=== PATIENT | male | born 1940 | race Caucasian/White ===

== ENCOUNTER 2019-06-28 16:58 | Inpatient (IN) | payer OTHER ==
[2019-06-28] VITALS (7 sets, daily range): BP systolic 138–166; BP diastolic 68–95
[~2019-06-28] VITALS: Ht 180.3 cm; Wt 84.4 kg
[2019-06-28 17:21] LABS: ABSOLUTE BASOPHILS 0.1 thou/uL (0.0-0.2); ABSOLUTE EOSINOPHILS 0.2 thou/uL (0.0-0.7); ABSOLUTE LYMPHOCYTES 2.2 thou/uL (0.8-5.3); ABSOLUTE MONOCYTES 0.8 thou/uL (0.0-1.2); ABSOLUTE NEUTROPHILS 3.9 thou/uL (1.6-8.1); BASOPHILS 1.3 %; EOSINOPHILS 2.8 %; HEMATOCRIT 45.2 % (42.0-52.0); HEMOGLOBIN 15.7 gm/dL (14.0-18.0); LYMPHOCYTES 30.8 %; MCH 31.9 pg (26.0-34.0); MCHC 34.7 g/dL (28.0-37.0); MCV 92.1 fL (80.0-100.0); MONOCYTES 11.4 %; MPV 8.7 fl. (7.2-11.1); NUCLEATED RBCS 0 /100WBC; PLATELET COUNT* 175 thou/uL (150-400); POLYS 53.7 %; RBC 4.91 mil/uL (4.50-6.00); RDW-CV 13.1 % (10.5-14.5); WBC 7.3 thou/uL (4.0-11.0)
[2019-06-28] MEDS ORDERED: VITAMIN D32000 UNI2 PO (17:22)
[2019-06-28] MEDS ORDERED: FLONASE 0.05%50 MCG NARES (17:23)
[2019-06-28] MEDS ORDERED: METRONIDAZOLE500 M4 PO (17:23)
[2019-06-28] MEDS ORDERED: TYLENOL PM EX-1 EACH PO (17:23)
[2019-06-28] MEDS ORDERED: ASA81BEC PO (17:24)
[2019-06-28 17:33] LABS: APTT 25.8 Seconds (25.0-31.3); CALCIUM 8.6 mg/dL (8.5-10.1); CREATININE 1.6 mg/dL (0.6-1.3); INR 1.1; PROTIME 11.5 Seconds (9.20-11.50)
[2019-06-28 17:34] LABS: POTASSIUM 2.9 mmol/L (3.5-5.1)
[2019-06-28 17:45] LABS: ALBUMIN 3.8 g/dL (3.4-5.0); CK-MB MASS 2.1 ng/mL (<0.5-3.6); MAGNESIUM 2.6 mg/dL (1.8-2.4); TOTAL BILIRUBIN 0.5 mg/dL (<0.1-1.0); TOTAL PROTEIN 7.1 g/dL (6.4-8.2)
[2019-06-29] VITALS (32 sets, daily range): BP systolic 108–173; BP diastolic 54–132
[2019-06-29 04:44] LABS: ABSOLUTE MONOCYTES 0.7 thou/uL (0.0-1.2); ABSOLUTE NEUTROPHILS 7.9 thou/uL (1.6-8.1); BASOPHILS 0.5 %; EOSINOPHILS 0.4 %; HEMATOCRIT 50.4 % (42.0-52.0); HEMOGLOBIN 17.6 gm/dL (14.0-18.0); LYMPHOCYTES 10.1 %; MCV 91.4 fL (80.0-100.0); MONOCYTES 7.7 %; MPV 8.8 fl. (7.2-11.1); NUCLEATED RBCS 0 /100WBC; PLATELET COUNT* 197 thou/uL (150-400); POLYS 81.3 %; RBC 5.51 mil/uL (4.50-6.00); WBC 9.7 thou/uL (4.0-11.0)
[2019-06-29 04:49] LABS: CALCIUM 8.9 mg/dL (8.5-10.1); CREATININE 1.4 mg/dL (0.6-1.3); POTASSIUM 3.8 mmol/L (3.5-5.1)
[2019-06-29 05:44] LABS: CALCIUM 8.9 mg/dL (8.5-10.1); CREATININE 1.4 mg/dL (0.6-1.3); POTASSIUM 3.8 mmol/L (3.5-5.1)
[2019-06-29 06:04] LABS: ALBUMIN 4.1 g/dL (3.4-5.0); TOTAL BILIRUBIN 0.8 mg/dL (<0.1-1.0)
[2019-06-29 06:40] LABS: TROPONIN-I LEVEL 35.89 ng/mL (<0.06)
--- NOTE | 2019-06-29 08:16 | CON ---
[address] [address] CONSULTATION Name: FREDY TOLENTINO Room: [address] IN M.R.#: [id number] Admission: 06/28/19 Attend Phys: Jose Hatch MD Discharge: Date of : 38 Report #: [id number] THIS REPORT FOR: //name// CC: Jose Hatch [facility] physician/PCP DATE OF SERVICE: 06/28/2019 CARDIOLOGY CONSULTATION INDICATION: Chest pain. HISTORY OF PRESENT ILLNESS: This is an 79-year-old gentleman with a past medical history of coronary artery disease with previous stents, hypertension, hypercholesterolemia, presenting with acute onset of chest pain. He developed substernal chest pain, radiating to his left arm at home. He was changing the wipers on his car. He presented to the ER within 40 minutes of onset of symptoms. He felt diaphoretic, dyspneic and nauseous. There is no history of fever, cough or chills. PAST MEDICAL HISTORY: Remote history of stent approximately 15 years ago. History of hypertension, history of hypercholesterolemia, not on a statin. Apparently, he has significant ALLERGIES TO MULTIPLE STATINS INCLUDING ITCHING AND DIZZINESS. MEDICATIONS AT HOME: Please see MAR include diuretics. SOCIAL HISTORY: Denies tobacco use. FAMILY HISTORY: Negative for premature CAD. REVIEW OF SYSTEMS: As listed in the HPI. PHYSICAL EXAMINATION: VITAL SIGNS: Blood pressure is 120/70, heart rate is 55 beats per minute. GENERAL APPEARANCE: This is an elderly appearing male, in mild distress. HEENT: Normocephalic, atraumatic. Oral mucosa moist. NECK: Supple. LUNGS: Clear to auscultation. CARDIAC: Regular rate and rhythm, S1, S2 positive. ABDOMEN: Soft, nontender. EXTREMITIES: No cyanosis, no edema. NEUROLOGIC: Alert and oriented x 3. LABORATORY VALUES: ECG reveals sinus bradycardia, [address] elevation in leads II, III, [place] [address] CONSULTATION Name: FREDY TOLENTINO Chele Room: [address] IN [facility]#: [id number] Admission: 06/28/19 Attend Phys: Jose Hatch MD Discharge: Date of : 39 Report #: [id number] ASSESSMENT AND PLAN: 1. Acute inferior wall myocardial infarction, the patient will be taken emergently to the cardiac golf course laborer. In the ER, he was treated with aspirin, heparin. 2. Hypertension, continue medications. 3. Hypercholesterolemia, intolerant to statins. He will be a candidate for Repatha or Praluent. 4. Bradycardia, hold beta betty therapy for now. 5. Electrolyte imbalance, replete potassium, due to diuretic therapy. <ELECTRONICALLY SIGNED> By: Pablo Braga MD 06/29/19 0816 1851 0134Pablo Braga MD /pk
--- NOTE | 2019-06-29 10:41 | CARD ---
[address] [address] CARDIAC CATH REPORT Name: FREDY TOLENTINO Room: [address] IN .R.#: [id number] Admission: 06/28/19 Attend Phys: Jose Hatch MD Discharge: Date of : 39 Report #: [id number] THIS REPORT FOR: //name// APPROVED REPORT Study performed: 06/28/2019 17:06:50 Patient Details Patient Status: ED Room #: The patient is a 79 year-old male Event Personnel Pablo Braga Sales Development Associate, Monica Martínez RN Sander Portable Machine, Michaela Newell RN Monitor, Darlene Dolan RTR Scrub Procedures Performed Art Access - R femoral artery* Left Heart Cath w/or w/o Coronaries [id number] [facility] Revasc AMI Total/Sub Single OM1 Hemostasis with Manual pressure Indication STEMI (>0 to less than or equal to 6 hours), Dyspnea, Chest pain Risk Factors Hypercholesterolemia, Coronary Artery DiseaseHypertension Previous Procedures/Diagnoses Previous PCI Admission/Lab Medications/Medications given during procedure Aspirin, Thrombin Inhibitors, Platelet Aff. Inhib., Potassium 80 meq given post procedurally for Potassium level of 2.9. Procedure Narrative The patient was brought emergently to the Cardiac Catheterization Laboratory and was prepped and draped in a sterile manner. The right femoral was infiltrated with 2% Lidocaine subcutaneous anesthesia. A 6fr [place] sheath was inserted into the right femoral artery. Coronary angiography was performed using coronary diagnostic catheters. The right coronary system was accessed and visualized with a 6F JR 4.0 catheter. The left coronary system was accessed and visualized with a Diagnostic 6.0 JL 4.0 catheter. The left ventricle was accessed and visualized with a Diagnostic Pigtail catheter. The patient tolerated the procedure well [place] [address] CARDIAC CATH REPORT Name: FREDY TOLENTINO Room: [address] IN [facility]#: [id number] Admission: 06/28/19 Attend Phys: Jose Hatch MD Discharge: Date of : 39 Report #: [id number] associated with the procedure. Manual Pressure for hemostasis will be performed two hours from Angiomax stopped time. Intraoperative Conscious Sedation No Sedation was given during this procedure Fluoro Time: 14.8 minutes Dose: DAP 895709 cGycm2 2598 mGy Contrast Type and Amount: Visipaque 235 ml Coronary Angiography The patient's coronary anatomy is right dominant. Diagnostic Cath Left Main The left main artery has mild to moderate diffuse disease, 30-40%. LAD The LAD has stents in the proximal and mid segments, patent with minimal restenosis. The distal segment tapers down to a small size caliber vessel, with a severe occlusion of 70%. Recommend medical therapy. Diagonal 1 This is a small-caliber vessel, patent with no flow-limiting lesions. Diagonal 2 This is a small-caliber vessel, patent with no flow-limiting lesions. Circumflex The left circumflex artery has mild disease proximally. OM1 There is a severe occlusion in the mid segment, 99% with SEUN 2 blood flow. OM2 This is a small-caliber vessel, patent with no flow-limiting lesions. Right Coronary The RCA has a stent in the midsegment, patent with mild restenosis, 30%. R PDA This is a small-caliber vessel, patent with no flow-limiting lesions. RPLV This is a small-caliber vessel, patent with no flow-limiting lesions. Left Ventriculography Left Ventriculography was not performed. An LVEDP was measured and there is no gradient across the outflow tract. Hemodynamics The aortic pressure is 149/69 mmHg with a mean of 100 mmHg. The left ventricular pressure is 120/26 mmHg with a mean of mmHg. The left ventricular end diastolic pressure is 32 mmHg. There was no gradient across the aortic [place] [address] CARDIAC CATH REPORT Name: FREDY TOLENTINO Room: [address] IN .R.#: [id number] Admission: 06/28/19 Attend Phys: Jose Hatch MD Discharge: Date of : 39 Report #: [id number] PCI Technique Lesion Anticoagulation was achieved with Angiomax. Patient was preloaded with Ticagrelor PO 180 mg. Percutaneous coronary intervention was performed on the first obtuse marginal branch segment. The lesion stenosis prior to intervention was 99% with SEUN 2 flow. A 6.0 XB 3.5 Guide Catheter was used to engage the Left Main ostium. A IG: Luge Wire 180 Interventional Guidewire was used to cross the lesion. BALLOON DILATION A Balloon catheter Mini Trek RX 1.5 X 12 was inserted and inflated up to 14.00atm for 20seconds. Additional Inflation: 14.00atm for 20seconds. Additional Inflation: 16.00atm for 23seconds. Additional Inflation: 14 sirisha for 14 seconds. Additional inflation: 14atm x 17 seconds and 14atm x 10 seconds respectively STENT DEPLOYMENT A drug-eluting stent [place] RX Stent [id number] was inserted and inflated up to 12.00atm for 19seconds. POST STENT DEPLOYMENT BALLOON DILATION A Balloon catheter [place] Trek RX 2.5 X 12 was inserted and inflated up to 12.00atm for 19seconds. Additional Inflation: 12.00atm for 14seconds. Additional Inflation: 18.00atm for 19seconds. Final angiography reveals 5 % stenosis with SEUN 3 flow. Conclusion 1. Successful insertion of a drug-eluting stent into the severe occlusion in the first OM artery. 2. There are patent stents in the LAD and RCA with mild restenosis. 3. The distal LAD segment is a small caliber vessel with a severe occlusion. Recommend medical therapy. 4. Recommend dual antiplatelet therapy and aggressive risk factor management. <ELECTRONICALLY SIGNED> By: Pablo Braga MD 06/29/19 1040 1040Pablo Braga MD /INF
[2019-06-30 00:01] VITALS: BP 148/82
[2019-06-30 04:33] VITALS: BP 141/76
[2019-06-30 07:54] VITALS: BP 134/81
[2019-06-30] MEDS ORDERED: COREG6.25 MG PO (08:16)
[2019-06-30] MEDS ORDERED: BRILINTA90 MG PO (08:16)
[2019-06-30 09:00] VITALS: BP 134/81
--- NOTE | 2019-06-30 10:06 | EKG ---
[place] [address] ELECTROCARDIOGRAM REPORT Name: FREDY TOLENTINO Room: [address] ADM IN M.R.#: [id number] Admission: 06/28/19 Attend Phys: Jose Hatch MD Discharge: Date of : 39 Report #: [id number] THIS REPORT FOR: //name// [facility] ED Test Date: 2019-06-28 Test Time: 17:07:24 Pat Name: FREDY TOLENTINO Department: Room: [facility] Gender: M Senior Salesforce Developer: KALIA : 1940 Requested By: Sean Leslie Order Number: [id number] MD: Geovanny Bonner Measurements Intervals [place] Rate: 54 P: 51 DE: 208 QRS: 66 QRSD: 103 T: 71 QT: 473 QTc: 449 Interpretive Statements Sinus bradycardia Inferior infarct Probable RV involvement, suggest recording right precordial leads Baseline wander in lead(s) I,II,III,aVR,aVL,V1,V2,V3,V4,V5,V6 No previous ECG available for comparison Electronically Signed On 06-30-2019 10:05:38 LICENSED OCCUPATIONAL THERAPIST by Geovanny Bonner [email or web address] <ELECTRONICALLY SIGNED> By: Geovanny Bonner MD, FACC 06/30/19 1005 1707 1707 Geovanny Bonner MD, FAC /EPI
[2019-06-30 10:08] VITALS: BP 134/81
--- NOTE | 2019-06-30 10:09 | EKG ---
[place] [address] ELECTROCARDIOGRAM REPORT Name: FREDY TOLENTINO Room: [address] ADM IN M.R.#: [id number] Admission: 06/28/19 Attend Phys: Jose Hatch MD Discharge: Date of : 39 Report #: [id number] THIS REPORT FOR: //name// [place] Test Date: 2019-06-28 Test Time: 19:28:47 Pat Name: FREDY CHARLENESHELL Department: Room: [address] Gender: M Qa Automation Architect: [id number] : 1940 Requested By: Pablo Braga Order Number: [id number] Reading MD: Geovanny Bonner Measurements Intervals [place] Rate: 69 P: [place]: QRS: 54 QRSD: 117 T: 2 QT: 461 QTc: 494 Interpretive Statements sinus rhythm with first degree av block Borderline low voltage, extremity leads Nonspecific repol abnormality, diffuse leads Baseline wander in lead(s) I,III,aVL Electronically Signed On 06-30-2019 10:09:14 CADDYMASTER by Geovanny Bonner [email or web address] <ELECTRONICALLY SIGNED> By: Geovanny Bonner MD, [facility] 06/30/19 1009 27 27 Geovanny Bonner MD, [facility] /EPI
--- NOTE | 2019-06-30 11:14 | 2DMMODE ---
[place] [address] 2 D/M-MODE ECHOCARDIOGRAM Name: FREDY TOLENTINO Room: [address] IN [facility]#: [id number] Admission: 06/28/19 Attend Phys: Jose Hatch, Discharge: Date of : 38 Date of Service: 06/30/19 1113 Report #: [id number] THIS REPORT FOR: //name// APPROVED REPORT Study performed: 06/30/2019 10:22:11 EXAM: Comprehensive 2D, Doppler, and color-flow Echocardiogram Patient Location: In-Patient Room #: 006 BSA: 2.02 HR: 79 bpm BP: 134/81 mmHg Other Information Study Quality: Good Indications KS/STEMI 2D Dimensions IVSd: 10.31 (7-11mm) LVOT Diam: 20.38 (18-24mm) LVDd: 37.42 mm PWd: 10.30 (7-11mm) Ascending Ao: 32.23 (22-36mm) LVDs: 28.62 (25-40mm) Aortic Root: 24.21 mm Volumes Left Atrial Volume (Systole) LA ESV Index: 19.60 mL/m2 Aortic Valve AoV Peak Shon.: 1.03 m/s AO Peak Gr.: 4.27 mmHg LVOT Max P.75 mmHg AO Mean Gr.: 2.34 mmHg LVOT Mean P.39 mmHg LVOT Max V: 0.83 m/s AO V2 VTI: 19.80 cm LVOT Mean V: 0.54 m/s NURIS (VTI): 2.84 cm2 LVOT V1 VTI: 17.24 cm Mitral Valve E/A Ratio: 0.56 MV Decel. Time: 372.95 ms MV E Max Shon.: 0.39 m/s MV PHT: 108.16 [place] [address] 2 D/M-MODE ECHOCARDIOGRAM Name: FREDY TOLENTINO Room: [address] IN .R.#: [id number] Admission: 06/28/19 Attend Phys: Jose Hatch, Discharge: Date of : 38 Date of Service: 06/30/19 1113 Report #: [id number] MVA (PHT): 2.03 cm2 TDI E/Lateral E': 5.57 E/Medial E': 7.80 Medial E' Shon.: 0.05 m/s Lateral E' Shon.: 0.07 m/s Pulmonary Valve PV Peak Shon.: 1.12 m/s PV Peak Gr.: 5.00 mmHg Tricuspid Valve RAP Estimate: 5.00 mmHg TR Peak Gr.: 18.86 mmHg RVSP: 23.86 mmHg PA Pressure: 23.86 mmHg Left Ventricle The left ventricle is normal size. Hypokinesis of the mid to distal lateral wall. There is normal left ventricular wall thickness. Left ventricular systolic function is normal. LVEF is 50-55%. Grade I - abnormal relaxation pattern. Right Ventricle The right ventricle is normal size. The right ventricular systolic function is normal. Atria The left atrium size is normal. The right atrium size is normal. Aortic Valve The aortic valve is normal in structure. No aortic regurgitation is present. There is no aortic valvular stenosis. Mitral Valve The mitral valve is normal in structure. There is no mitral valve regurgitation noted. No evidence of mitral valve stenosis. Tricuspid Valve The tricuspid valve is normal in structure. Mild tricuspid regurgitation. No pulmonary hypertension. Pulmonic Valve The pulmonary valve is normal in structure. Trace pulmonic regurgitation[place] [address] 2 D/M-MODE ECHOCARDIOGRAM Name: FREDY TOLENTINO Chele Room: [address] [place] [facility]#: [id number] Admission: 06/28/19 Attend Phys: Jose Hatch, Discharge: Date of : 38 Date of Service: 06/30/19 1113 Report #: [id number] The aortic root is normal in size. IVC is normal in size and collapses >50% with inspiration. Pericardium There is no pericardial effusion. <Conclusion> The left ventricle is normal size. There is normal left ventricular wall thickness. Left ventricular systolic function is normal. LVEF is 50-55%. Grade I - abnormal relaxation pattern. Hypokinesis of the mid to distal lateral wall. Mild tricuspid regurgitation. No pulmonary hypertension. IVC is normal in size and collapses >50% with inspiration. <ELECTRONICALLY SIGNED> By: Wilson Morales MD, FACC 06/30/19 1113 111 111 Wilson Morales MD, FACC /INF
--- NOTE | 2019-06-30 12:27 | EKG ---
[place] [address] ELECTROCARDIOGRAM REPORT Name: FREDY TOLENTINO Room: [address] ADM IN M.R.#: [id number] Admission: 06/28/19 Attend Phys: Jose Hatch MD Discharge: Date of : 38 Report #: [id number] THIS REPORT FOR: //name// [facility] Test Date: 2019-06-29 Test Time: 07:54:05 Pat Name: FREDY TOLENTINO Department: Room: [address] Gender: M Bicycle Fitter: CIERRA : 1940 Requested By: Jose Hatch Order Number: [id number] Reading MD: Geovanny Bonner Measurements Intervals [place] Rate: 64 P: 61 TN: 183 QRS: 55 QRSD: 88 T: -71 QT: 471 QTc: 486 Interpretive Statements Sinus rhythm Borderline low voltage, extremity leads Abnormal T, consider ischemia, diffuse leads Compared to ECG 06/28/2019 19:28:47 T-wave abnormality now present Possible ischemia now present First degree AV block no longer present Electronically Signed On 06-30-2019 12:26:25 DESKTOP SUPPORT ASSOCIATE by Geovanny Bonner [email or web address] <ELECTRONICALLY SIGNED> By: Geovanny Bonner MD, [facility] 06/30/19 1226 0754 0754 Geovanny Bonner MD, [facility] /EPI
== END 2019-06-30 11:45 | disposition home or self-care (01) | DRG 246 ==
LOC: M.CL 16:58 → M.ERS 16:58 → M.CL 17:35 → M.TBA-CV 18:35 → M.ICU 18:35
PROVIDERS: Family Medicine; Internal Medicine Cardiovascular Disease; ADMIT Internal Medicine
PROC: 4A023N7 Measurement of Cardiac Sampling and Pressure, Left Heart, Percutaneous Approach (ICD-10-PCS; principal; 2019-06-28)
PROC: 027034Z Dilation of Coronary Artery, One Artery with Drug-eluting Intraluminal Device, Percutaneous Approach (ICD-10-PCS; principal; 2019-06-28)
PROC: B211YZZ Fluoroscopy of Multiple Coronary Arteries using Other Contrast (ICD-10-PCS; principal; 2019-06-28)
DX: I21.19 ST elevation (STEMI) myocardial infarction involving other coronary artery of inferior wall (principal); I50.33 Acute on chronic diastolic (congestive) heart failure; N17.9 Acute kidney failure, unspecified; E78.00 Pure hypercholesterolemia, unspecified; I25.10 Atherosclerotic heart disease of native coronary artery without angina pectoris; I11.0 Hypertensive heart disease with heart failure; R00.1 Bradycardia, unspecified; E87.8 Other disorders of electrolyte and fluid balance, not elsewhere classified; E87.6 Hypokalemia; Z88.1 Allergy status to other antibiotic agents; Z88.8 Allergy status to other drugs, medicaments and biological substances; Z95.5 Presence of coronary angioplasty implant and graft; Z79.82 Long term (current) use of aspirin; Z79.899 Other long term (current) drug therapy; Z82.49 Family history of ischemic heart disease and other diseases of the circulatory system